=== PATIENT | female | born 1995 | race Caucasian/White ===

== ENCOUNTER → 2017-09-23 | Outpatient (CLI) | payer BC ==
[2017-09-26 00:33] LABS: CHLAMYDIA TRACH RNA*** NOT DETECTED (NOT DETECTED); GC (NEIS GONORRHOEAE)RNA** NOT DETECTED (NOT DETECTED)
== END | disposition home or self-care (01) ==
LOC: C.LABSPEC 11:03
PROVIDERS: ATTEND Family Medicine
DX: Z11.3 Encounter for screening for infections with a predominantly sexual mode of transmission (principal)

== ENCOUNTER → 2017-09-23 | Outpatient (CLI) | payer BC | END | disposition home or self-care (01) | LOC: C.PAPS 13:09 | PROVIDERS: ATTEND Family Medicine | DX: Z12.72 Encounter for screening for malignant neoplasm of vagina (principal) ==

== ENCOUNTER 2018-06-25 08:12 | Emergency (ER) | payer BC, OTHER ==
[~2018-06-25] VITALS: Ht 170.2 cm; Wt 70.0 kg
[2018-06-25 08:20] VITALS: TEMP 36.5; Ht 170.2 cm; Wt 70.0 kg
[2018-06-25] MEDS ORDERED: IBUP-1050 PO (08:32)
[2018-06-25] MEDS ORDERED: CYCL5TAB PO (08:32)
[2018-06-25] MEDS ORDERED: HYDROCODONE/ACETAMIN 5/325MG TAB PO STA (09:02)
[2018-06-25] MEDS ORDERED: KETOROLAC TROMETHAMINE 60 MG/2 ML VIAL IM STA (09:02)
[2018-06-25] MEDS ORDERED: DEXAMETHASONE SOD INJ 10 MG/ML VIAL ONE (09:09)
[2018-06-25] MEDS ORDERED: DEXAMETHASONE **PF** INJ 10 MG/ML VIAL IM ONE (09:15)
--- NOTE | 2018-06-25 10:20 | EMERGENCY ROOM VISIT NOTE ---
ED Visit Note First contact with patient: 08:25 CHIEF COMPLAINT: Low back pain with right radiculopathy HISTORY OF PRESENT ILLNESS: This 22-year-old female presents to the ER with chief complaint of low back pain on the right side which radiates down her right leg to her toes. Patient states that the pain started on Friday but she denies any initial injury. She states the pain is dull all the time and intermittently sharp with shooting pain down the right leg. Is worse when she walks or stands. She gets relief when she lays flat. The patient states that she went to a chiropractor 3 times since the onset of the pain without any relief. The patient denies any loss of bowel or bladder control or any saddle anesthesia. The patient states she has had similar symptoms in the past approximately 1 year ago. She states that that time she was given Toradol and did therapy and it got slightly better but never completely resolved. The patient has had other upper back and neck issues which she has seen her primary care physician, Dr. Ybarra and went to physical therapy and had MRIs performed of the thoracic spine and the cervical spine. The patient also admits to having a history of scoliosis. The patient also has gone to the pain clinic for her upper back and neck pain. She states she has not been there for her lower back. REVIEW OF SYSTEMS: 6 system review was performed and was negative unless stated otherwise in history of present illness. PMH: The patient is healthy; scoliosis, upper back and cervical spine issues. Asthma, stomach problems SOCIAL HISTORY: Patient denies any tobacco use but admits to occasional alcohol use. PHYSICAL EXAM: Vital Signs normal: Reviewed Nurse's notes and agree. GENERAL: 22-year-old female appears in no acute distress. MENTAL STATUS: Alert and oriented 3. LUMBAR SPINE: No gross bony abnormality noted. Patient is nontender to palpation over the spinous processes. She is tender to palpation over the right paravertebral region, left side nontender. She has limited range of motion in all directions secondary to pain. Muscle strength is 5 out of 5 bilateral lower extremities and symmetrical. NEURO: Patient is able to heel and toe walk without difficulty. I lateral patellar and Achilles reflexes are 2+. Sensation is intact to pinprick bilateral lower extremities. Positive straight leg raise on the right. EMERGENCY DEPARTMENT COURSE: The patient was evaluated. The patient was given Toradol 60 mg IM, Decadron 10 mg IM, Omena 5/325 mg 2 tablets p.o. for pain. I did not perform x-ray since she has states she has had multiple x-rays of her back in the past. There has been no new injury. The patient was reevaluated was feeling slightly better. The patient has seen Dr. Regalado in the past for her upper back pain therefore had the mattress spring encaser set her up an appointment to follow-up with Dr. Regalado. The patient was happy with treatment plan was discharged home in stable condition. DIAGNOSIS: Low back pain with right radiculopathy DISCHARGE INSTRUCTIONS AND TREATMENT: Ibuprofen 600 mg every 6 hours with food for pain. Take Medrol Dosepak as prescribed. Start this tomorrow. Take Omena as prescribed. Do not drive while taking the Omena. Keep scheduled appointment with Dr. Regalado for next Friday. If symptoms worsen in the interim , return to ER. Current/Historical Medications Scheduled PRN Cyclobenzaprine Hcl (Flexeril), Unknown Dose PO TID PRN for Muscle Spasms Ibuprofen (Advil), 400-600 MG PO Q6H PRN for Pain Allergies Coded Allergies: Amoxicillin (Unverified Allergy, Unknown, rash , 06/25/18) Vital Signs Date Time Temp Pulse Resp B/P (MAP) Pulse Ox O2 Delivery O2 Flow Rate FiO2 06/25/18 08:20 36.5 85 18 99/69 99 Room Air Medications Administered Medications (Trade) Dose Ordered Sig/Gela Route Start Time Stop Time Status Last Admin Dose Admin Ketorolac Tromethamine (Toradol Inj) 60 mg NOW STAT IM 06/25/18 09:02 06/25/18 09:04 DC 06/25/18 09:11 60 MG Acetaminophen/ Hydrocodone Bitart (O[place] 5/325 Tab) 2 tab NOW STAT PO 06/25/18 09:02 06/25/18 09:04 DC 06/25/18 09:11 2 TAB Dexamethasone Sodium Phosphate (Decadron Inj) 10 mg STK-MED ONCE .ROUTE 06/25/18 09:09 06/25/18 09:10 DC 06/25/18 09:12 10 MG Departure Information Referrals Roly Ybarra DO (PCP) Patient Instructions My [facility]
[2018-06-25] MEDS ORDERED: METH4PAK PO (10:22)
[2018-06-25] MEDS ORDERED: HYDR-5688 PO (10:22)
[2018-06-25 10:51] VITALS: BP 118/73; PULSE 79; O2SAT 100
== END 2018-06-25 10:55 | disposition home or self-care (01) ==
LOC: C.EDB 08:14 → C.EDA 10:55
DX: M54.16 Radiculopathy, lumbar region (principal); Z87.39 Personal history of other diseases of the musculoskeletal system and connective tissue